=== PATIENT | female | born 1990 | race Caucasian/White ===

== ENCOUNTER 2017-08-08 07:48 | Inpatient (IN) | payer OTHER ==
[2017-08-08] MEDS: LABETALOL HCL 20MG INJ IV (08:43)
[2017-08-08] MEDS: SOD CHLORIDE 0.45% 1,000 ML IV ×2 (09:15→21:19)
[2017-08-08] MEDS ORDERED: NACL 0.9% 3 ML SYG IV (09:30)
[2017-08-08] MEDS ORDERED: MAGNESIUM HYDROXIDE 30ML CUP PO (09:30)
[2017-08-08] MEDS ORDERED: LORAZEPAM 2 MG INJ IV (09:30)
[2017-08-08] MEDS ORDERED: NITROGLYCERIN (SL) 0.4 MG TAB SL (09:30)
[2017-08-08] MEDS ORDERED: ONDANSETRON 4 MG INJ IV (09:30)
[2017-08-08] MEDS ORDERED: NA PHOSPHATE/BIPHOS 133 ML ENEMA PR (09:30)
[2017-08-08] MEDS ORDERED: ALBUTEROL/IPRATROPIUM (NEB) 3 ML AMP HHN (09:30)
[2017-08-08] MEDS: hydrALAzine 20 MG INJ IV ×2 (09:39→16:21)
[2017-08-08] MEDS: morphine 2 MG INJ IV ×3 (09:39→21:05)
[2017-08-08 11:06] LABS: FREE T4 (FREE THYROXINE) 0.77 ng/dl (0.79-2.35)
[2017-08-08] MEDS: PHENYTOIN 100 MG CAP PO ×2 (11:14→21:07)
[2017-08-08] MEDS: HYDROCODONE/APAP (5/325) TAB PO ×2 (11:27→21:13)
[2017-08-08] MEDS: DIPHENHYDRAMINE 25 MG CAP PO ×2 (12:15→21:12)
[2017-08-08] MEDS: SEVELAMER 800 MG TAB GTB ×2 (12:15→21:06)
[2017-08-08] MEDS: predniSONE 5 MG TAB PO (12:15)
[2017-08-08 12:59] LABS: ANION GAP 23 (8-16); BLOOD UREA NITROGEN 57 mg/dl (7-20); CALCIUM 12.4 mg/dl (8.4-10.2); CARBON DIOXIDE 29 mmol/L (21-31); CHLORIDE 94 mmol/L (97-110); CREATINE KINASE 42 IU/L (23-200); CREATININE 9.47 mg/dl (0.44-1.00); GLUCOSE 104 mg/dl (70-220); POTASSIUM 5.2 mmol/L (3.5-5.1); SODIUM 141 mmol/L (135-144)
[2017-08-08 13:10] LABS: CK INDEX 1.6; CK-MB 0.68 ng/ml (0.0-2.4); TROPONIN-I 0.059 ng/ml (0.00-0.12)
[2017-08-08 13:35] LABS: C-REACTIVE PROTEIN 0.7 mg/dl (0.0-0.9)
[2017-08-08] MEDS: NA POLYST SULFON 15 GM/60 ML BTL PO (13:37)
[2017-08-08] MEDS: LABETALOL 200 MG TAB PO ×2 (15:06→21:18)
[2017-08-08] MEDS ORDERED: PHENYTOIN 100 MG CAP PO (21:00)
[2017-08-08] MEDS: GABAPENTIN 300 MG CAP PO (21:06)
[2017-08-08] MEDS: METOPROLOL 50 MG TAB PO (21:14)
[2017-08-08] MEDS: HEPARIN 5,000 UNIT/0.5 ML VIAL SC (21:16)
[2017-08-08] MEDS: DOCUSATE SODIUM 100 MG CAP PO (22:09)
[2017-08-08] MEDS: FAMOTIDINE 20 MG TAB PO (22:44)
[2017-08-09] MEDS: PANTOPRAZOLE (EC) 40 MG TAB PO (01:25)
[2017-08-09] MEDS: hydrALAzine 20 MG INJ IV (02:36)
[2017-08-09] MEDS: morphine 2 MG INJ IV ×2 (02:37→07:31)
[2017-08-09] MEDS ORDERED: predniSONE 5 MG TAB PO (09:00)
[2017-08-09] MEDS: SEVELAMER 800 MG TAB GTB ×3 (09:00→20:47)
[2017-08-09 11:00] LABS: ADD MAN DIFF? NO
[2017-08-09 11:05] LABS: WHITE BLOOD COUNT 5.2 10^3/ul (4.8-10.8)
[2017-08-09 11:05] LABS: BASOPHILS % 0.6 % (0.0-2.0); EOSINOPHILS # 0.4 10^3/ul (0.0-0.5); EOSINOPHILS % 8.3 % (0.0-7.0); HEMATOCRIT 28.1 % (37.0-47.0); HEMOGLOBIN 9.4 g/dl (12.0-16.0); LYMPHOCYTES # 0.9 10^3/ul (0.8-2.9); LYMPHOCYTES % 17.9 % (15.0-51.0); MEAN CORPUSCULAR HEMOGLOBIN 34.8 pg (29.0-33.0); MEAN CORPUSCULAR HGB CONC 33.5 g/dl (32.0-37.0); MEAN CORPUSCULAR VOLUME 104.1 fl (82.0-101.0); MEAN PLATELET VOLUME 9.9 fl (7.4-10.4); MONOCYTE # 0.6 10^3/ul (0.3-0.9); MONOCYTES % 12.3 % (0.0-11.0); NEUTROPHIL # 3.2 10^3/ul (1.6-7.5); NEUTROPHILS % 60.5 % (39.0-77.0); PLATELET COUNT 200 10^3/UL (140-415); RED CELL DISTRIBUTION WIDTH 13.2 % (11.5-14.5)
[2017-08-09 11:19] LABS: ALBUMIN 3.5 g/dl (3.3-4.9)
[2017-08-09 11:53] LABS: HEPATITIS B SURFACE ANTIGEN NEGATIVE (NEGATIVE)
[2017-08-09] MEDS: SOD CHLORIDE 0.45% 1,000 ML IV (11:55)
[2017-08-09 12:10] LABS: HEPATITIS B SURFACE ANTIBODY POSITIVE (NEGATIVE)
[2017-08-09] MEDS: CINACALCET 30 MG TAB PO (12:52)
[2017-08-09] MEDS: PHENYTOIN 100 MG CAP PO ×2 (12:52→20:47)
[2017-08-09] MEDS: predniSONE 10 MG TAB PO (12:53)
[2017-08-09] MEDS: LABETALOL 200 MG TAB PO ×2 (12:54→20:48)
[2017-08-09] MEDS: METOPROLOL 50 MG TAB PO ×2 (12:54→20:48)
[2017-08-09] MEDS: HEPARIN 5,000 UNIT/0.5 ML VIAL SC ×2 (12:56→20:49)
[2017-08-09 13:25] LABS: ANION GAP 26 (8-16); BLOOD UREA NITROGEN 69 mg/dl (7-20); CALCIUM 12.3 mg/dl (8.4-10.2); CARBON DIOXIDE 24 mmol/L (21-31); CHLORIDE 95 mmol/L (97-110); CHOL/HDL RATIO 2.8 RATIO; CHOLESTEROL 133 mg/dl (100-200); CREATININE 10.87 mg/dl (0.44-1.00); GLUCOSE 74 mg/dl (70-220); HDL CHOLESTEROL 47 mg/dl (33-83); LDL CHOLESTEROL,CALCULATED 47 mg/dl; MAGNESIUM 3.3 mg/dl (1.7-2.5); PHOSPHORUS 7.5 mg/dl (2.5-4.9); SODIUM 139 mmol/L (135-144); TRIGLYCERIDES 194 mg/dl (0-149)
[2017-08-09 13:30] LABS: POTASSIUM 6.2 mmol/L (3.5-5.1)
[2017-08-09 13:32] LABS: HEMOGLOBIN A1C 4.6 % (0-5.9)
[2017-08-09] MEDS: traMADol 50 MG TAB PO (19:48)
[2017-08-10] MEDS: traMADol 50 MG TAB PO ×2 (01:36→17:14)
[2017-08-10] MEDS: PANTOPRAZOLE (EC) 40 MG TAB PO (05:52)
[2017-08-10 08:53] LABS: ADD MAN DIFF? NO
[2017-08-10] MEDS: SEVELAMER 800 MG TAB GTB ×3 (09:02→20:41)
[2017-08-10] MEDS: PHENYTOIN 100 MG CAP PO ×2 (09:02→20:40)
[2017-08-10] MEDS: GABAPENTIN 100 MG CAP PO (09:02)
[2017-08-10] MEDS: predniSONE 10 MG TAB PO (09:03)
[2017-08-10] MEDS: CINACALCET 30 MG TAB PO (09:03)
[2017-08-10] MEDS: METOPROLOL 50 MG TAB PO ×2 (09:03→20:41)
[2017-08-10] MEDS: LABETALOL 200 MG TAB PO ×2 (09:04→20:40)
[2017-08-10] MEDS: HEPARIN 5,000 UNIT/0.5 ML VIAL SC ×2 (09:06→20:46)
[2017-08-10 09:07] LABS: WHITE BLOOD COUNT 4.8 10^3/ul (4.8-10.8)
[2017-08-10 09:07] LABS: BASOPHILS % 0.4 % (0.0-2.0); EOSINOPHILS # 0.2 10^3/ul (0.0-0.5); EOSINOPHILS % 3.7 % (0.0-7.0); HEMATOCRIT 32.3 % (37.0-47.0); HEMOGLOBIN 10.6 g/dl (12.0-16.0); LYMPHOCYTES # 1.1 10^3/ul (0.8-2.9); LYMPHOCYTES % 22.4 % (15.0-51.0); MEAN CORPUSCULAR HEMOGLOBIN 34.3 pg (29.0-33.0); MEAN CORPUSCULAR HGB CONC 32.8 g/dl (32.0-37.0); MEAN CORPUSCULAR VOLUME 104.5 fl (82.0-101.0); MEAN PLATELET VOLUME 9.8 fl (7.4-10.4); MONOCYTE # 0.6 10^3/ul (0.3-0.9); MONOCYTES % 12.2 % (0.0-11.0); NEUTROPHIL # 2.9 10^3/ul (1.6-7.5); NEUTROPHILS % 61.1 % (39.0-77.0); PLATELET COUNT 209 10^3/UL (140-415); RED BLOOD COUNT 3.09 10^6/ul (4.20-5.40); RED CELL DISTRIBUTION WIDTH 13.3 % (11.5-14.5)
[2017-08-10 09:26] LABS: ALBUMIN 3.9 g/dl (3.3-4.9)
[2017-08-10] MEDS: ACETAMINOPHEN 325 MG TAB PO ×2 (09:37→20:40)
[2017-08-10 09:41] LABS: ANION GAP 21 (8-16); BLOOD UREA NITROGEN 42 mg/dl (7-20); CALCIUM 12.1 mg/dl (8.4-10.2); CARBON DIOXIDE 28 mmol/L (21-31); CHLORIDE 98 mmol/L (97-110); CREATININE 7.54 mg/dl (0.44-1.00); GLUCOSE 79 mg/dl (70-220); POTASSIUM 5.9 mmol/L (3.5-5.1); SODIUM 141 mmol/L (135-144)
[2017-08-10] MEDS: NA POLYST SULFON 15 GM/60 ML BTL PO (12:23)
[2017-08-10 17:23] LABS: PTH CALCIUM 12.5 mg/dL (8.6-10.2)
[2017-08-10] MEDS: morphine 2 MG INJ IV (21:33)
[2017-08-11] MEDS: LABETALOL HCL 20MG INJ IV (01:11)
[2017-08-11] MEDS: DIPHENHYDRAMINE 25 MG CAP PO (02:35)
[2017-08-11] MEDS: PANTOPRAZOLE (EC) 40 MG TAB PO (05:09)
[2017-08-11] MEDS: hydrALAzine 20 MG INJ IV ×2 (05:14→14:27)
[2017-08-11 08:21] LABS: PTH INTACT 547 pg/mL (14-64)
[2017-08-11] MEDS: HEPARIN 5,000 UNIT/0.5 ML VIAL SC ×2 (09:00→14:25)
[2017-08-11] MEDS: SEVELAMER 800 MG TAB GTB ×2 (09:06→13:17)
[2017-08-11 09:46] LABS: ADD MAN DIFF? NO
[2017-08-11 09:53] LABS: BASOPHILS % 0.4 % (0.0-2.0); EOSINOPHILS # 0.3 10^3/ul (0.0-0.5); EOSINOPHILS % 3.7 % (0.0-7.0); HEMOGLOBIN 10.1 g/dl (12.0-16.0); LYMPHOCYTES # 1.4 10^3/ul (0.8-2.9); LYMPHOCYTES % 17.3 % (15.0-51.0); MEAN CORPUSCULAR HEMOGLOBIN 34.1 pg (29.0-33.0); MEAN CORPUSCULAR HGB CONC 32.6 g/dl (32.0-37.0); MEAN CORPUSCULAR VOLUME 104.7 fl (82.0-101.0); MEAN PLATELET VOLUME 9.9 fl (7.4-10.4); MONOCYTE # 0.5 10^3/ul (0.3-0.9); MONOCYTES % 6.8 % (0.0-11.0); NEUTROPHIL # 5.6 10^3/ul (1.6-7.5); NEUTROPHILS % 71.5 % (39.0-77.0); PLATELET COUNT 207 10^3/UL (140-415); RED BLOOD COUNT 2.96 10^6/ul (4.20-5.40); RED CELL DISTRIBUTION WIDTH 13.2 % (11.5-14.5)
[2017-08-11 09:53] LABS: WHITE BLOOD COUNT 7.8 10^3/ul (4.8-10.8)
[2017-08-11 10:12] LABS: ANION GAP 24 (8-16); BLOOD UREA NITROGEN 63 mg/dl (7-20); CARBON DIOXIDE 24 mmol/L (21-31); CHLORIDE 99 mmol/L (97-110); CREATININE 10.54 mg/dl (0.44-1.00); GLUCOSE 117 mg/dl (70-220); POTASSIUM 4.9 mmol/L (3.5-5.1); SODIUM 142 mmol/L (135-144)
[2017-08-11] MEDS: HYDROmorphONE 0.5 MG/0.5 ML SYG IV (13:17)
[2017-08-11] MEDS: PHENYTOIN 100 MG CAP PO (14:25)
[2017-08-11] MEDS: METOPROLOL 50 MG TAB PO (14:26)
[2017-08-11] MEDS: LABETALOL 200 MG TAB PO (14:26)
[2017-08-11] MEDS: predniSONE 10 MG TAB PO (14:26)
[2017-08-11] MEDS: CINACALCET 30 MG TAB PO (14:26)
[2017-08-11 15:52] LABS: ANTI-DNA (DOUBLE STRANDED) <95 U/mL (< 301)
== END 2017-08-11 17:30 | disposition home or self-care (01) | DRG 643 ==
LOC: MS4 07:48
PROVIDERS: Internal Medicine
PROC: 5A1D70Z Performance of Urinary Filtration, Intermittent, Less than 6 Hours Per Day (ICD-10-PCS; principal; 2017-08-08)
PROC: 5A1D70Z Performance of Urinary Filtration, Intermittent, Less than 6 Hours Per Day (ICD-10-PCS; 2017-08-10)
DX: E21.0 Primary hyperparathyroidism (principal); N18.6 End stage renal disease; M32.9 Systemic lupus erythematosus, unspecified; I12.0 Hypertensive chronic kidney disease with stage 5 chronic kidney disease or end stage renal disease; N17.9 Acute kidney failure, unspecified; E87.70 Fluid overload, unspecified; Z99.2 Dependence on renal dialysis; M79.1 Myalgia; G40.909 Epilepsy, unspecified, not intractable, without status epilepticus; I16.0 Hypertensive urgency
CPT/HCPCS: 80048; 80061; 82040; 82306; 82550; 82553; 83036; 83735; 83970; 84100; 84439; 84443; 84484; 85025; 86140; 86226; 86706; 87340; 90935; 97110; 97116; 97162

== ENCOUNTER 2017-11-22 20:36 | Observation (INO) | payer OTHER ==
[2017-11-22] MEDS: ONDANSETRON 4 MG INJ IV (23:14)
[2017-11-22] MEDS: HYDROmorphONE 1 MG/ML SYG IV (23:14)
[2017-11-22] MEDS: SOD CHLORIDE 0.9% 500 ML IV ×2 (23:14→23:16)
[2017-11-22 23:25] LABS: ADD MAN DIFF? NO
[2017-11-22 23:26] LABS: WHITE BLOOD COUNT 4.8 10^3/ul (4.8-10.8)
[2017-11-22 23:26] LABS: BASOPHILS % 0.8 % (0.0-2.0); EOSINOPHILS # 0.7 10^3/ul (0.0-0.5); EOSINOPHILS % 14.1 % (0.0-7.0); HEMATOCRIT 28.5 % (37.0-47.0); HEMOGLOBIN 9.4 g/dl (12.0-16.0); LYMPHOCYTES # 0.8 10^3/ul (0.8-2.9); LYMPHOCYTES % 17.2 % (15.0-51.0); MEAN CORPUSCULAR HEMOGLOBIN 35.2 pg (29.0-33.0); MEAN CORPUSCULAR VOLUME 106.7 fl (82.0-101.0); MEAN PLATELET VOLUME 10.1 fl (7.4-10.4); MONOCYTE # 0.6 10^3/ul (0.3-0.9); MONOCYTES % 12.4 % (0.0-11.0); NEUTROPHIL # 2.7 10^3/ul (1.6-7.5); NEUTROPHILS % 55.1 % (39.0-77.0); PLATELET COUNT 250 10^3/UL (140-415); RED BLOOD COUNT 2.67 10^6/ul (4.20-5.40)
[2017-11-22 23:49] LABS: INR 0.89; PROTIME 12.1 Sec (11.9-14.9); PT RATIO 0.9
[2017-11-22 23:54] LABS: ALANINE AMINOTRANSFERASE 18 IU/L (13-69); ALBUMIN/GLOBULIN RATIO 1.21; ALKALINE PHOSPHATASE 550 IU/L (42-121); ANION GAP 20 (8-16); ASPARTATE AMINO TRANSFERASE 18 IU/L (15-46); BLOOD UREA NITROGEN 25 mg/dl (7-20); CALCIUM 12.2 mg/dl (8.4-10.2); CARBON DIOXIDE 28 mmol/L (21-31); CHLORIDE 94 mmol/L (97-110); CREATININE 5.48 mg/dl (0.44-1.00); GLUCOSE 98 mg/dl (70-220); LIPASE 99 U/L (23-300); POTASSIUM 3.7 mmol/L (3.5-5.1); SODIUM 138 mmol/L (135-144); TOTAL PROTEIN 7.3 g/dl (6.1-8.1)
[2017-11-23] MEDS: DIPHENHYDRAMINE 50 MG INJ IV (00:20)
[2017-11-23] MEDS: ACETAMINOPHEN 325 MG TAB PO (05:00)
[2017-11-23] MEDS ORDERED: ALBUTEROL/IPRATROPIUM (NEB) 3 ML AMP HHN (05:30)
[2017-11-23] MEDS ORDERED: DOCUSATE SODIUM 100 MG CAP PO (05:30)
[2017-11-23] MEDS ORDERED: NACL 0.9% 3 ML SYG IV (05:30)
[2017-11-23] MEDS ORDERED: FAMOTIDINE 20 MG TAB PO (05:30)
[2017-11-23] MEDS ORDERED: ONDANSETRON 4 MG INJ IV (05:30)
[2017-11-23] MEDS ORDERED: PHENYTOIN 200 MG PO (09:00)
[2017-11-23] MEDS: METOPROLOL 50 MG TAB PO ×2 (09:19→20:29)
[2017-11-23] MEDS: CINACALCET 30 MG TAB PO ×2 (09:19→20:27)
[2017-11-23] MEDS: LABETALOL 200 MG TAB PO ×2 (09:20→21:17)
[2017-11-23] MEDS: SEVELAMER CARBONATE 800 MG TABLET PO ×3 (09:23→17:30)
[2017-11-23] MEDS: HYDROCODONE/APAP (5/325) TAB PO (10:14)
[2017-11-23] MEDS: morphine 2 MG INJ IV (11:09)
[2017-11-23] MEDS: predniSONE 10 MG TAB PO (11:09)
[2017-11-23] MEDS: HEPARIN 5,000 UNIT/0.5 ML VIAL SC ×2 (11:24→20:33)
[2017-11-23] MEDS ORDERED: morphine 2 MG INJ IV (12:00)
[2017-11-23 12:59] LABS: COMPLEMENT C3 71 mg/dl (88-165); COMPLEMENT C4 30 mg/dl (14-44)
[2017-11-23] MEDS: PHENYTOIN 100 MG CAP PO ×2 (13:05→20:28)
[2017-11-23] MEDS ORDERED: morphine LIQ (10 MG/5 ML) CUP PO (17:00)
[2017-11-23] MEDS: CALCITONIN SALMON 400 UNITS INJ SC (17:30)
[2017-11-23] MEDS: HYDROmorphONE 1 MG/ML SYG IV (19:06)
[2017-11-23] MEDS ORDERED: CALCITONIN SALMON 3.7 ML NASAL SPRAY NASAL (20:00)
[2017-11-23] MEDS: NIFEdipine (XL) 90 MG TAB PO (20:29)
[2017-11-23] MEDS: DIPHENHYDRAMINE 25 MG CAP PO ×2 (21:16→23:30)
[2017-11-23] MEDS: LORAZEPAM 1 MG TAB PO (23:12)
[2017-11-23] MEDS: hydrALAzine 20 MG INJ IV (23:43)
[2017-11-24 06:08] LABS: ADD MAN DIFF? NO
[2017-11-24 06:12] LABS: BASOPHILS % 0.7 % (0.0-2.0); EOSINOPHILS # 0.4 10^3/ul (0.0-0.5); EOSINOPHILS % 8.1 % (0.0-7.0); HEMOGLOBIN 7.8 g/dl (12.0-16.0); LYMPHOCYTES % 21.4 % (15.0-51.0); MEAN CORPUSCULAR HEMOGLOBIN 34.7 pg (29.0-33.0); MEAN CORPUSCULAR HGB CONC 32.5 g/dl (32.0-37.0); MEAN CORPUSCULAR VOLUME 106.7 fl (82.0-101.0); MEAN PLATELET VOLUME 10.2 fl (7.4-10.4); MONOCYTE # 0.6 10^3/ul (0.3-0.9); MONOCYTES % 12.2 % (0.0-11.0); NEUTROPHIL # 2.6 10^3/ul (1.6-7.5); NEUTROPHILS % 57.4 % (39.0-77.0); PLATELET COUNT 229 10^3/UL (140-415); RED BLOOD COUNT 2.25 10^6/ul (4.20-5.40); RED CELL DISTRIBUTION WIDTH 13.6 % (11.5-14.5)
[2017-11-24 06:12] LABS: WHITE BLOOD COUNT 4.6 10^3/ul (4.8-10.8)
[2017-11-24 06:39] LABS: ALANINE AMINOTRANSFERASE 18 IU/L (13-69); ALBUMIN 3.2 g/dl (3.3-4.9); ALBUMIN/GLOBULIN RATIO 1.14; ALKALINE PHOSPHATASE 401 IU/L (42-121); ANION GAP 19 (8-16); ASPARTATE AMINO TRANSFERASE 13 IU/L (15-46); BLOOD UREA NITROGEN 43 mg/dl (7-20); CALCIUM 11.5 mg/dl (8.4-10.2); CARBON DIOXIDE 30 mmol/L (21-31); CHLORIDE 92 mmol/L (97-110); GLUCOSE 88 mg/dl (70-220); MAGNESIUM 2.5 mg/dl (1.7-2.5); PHOSPHORUS 8.9 mg/dl (2.5-4.9); POTASSIUM 4.1 mmol/L (3.5-5.1); SODIUM 137 mmol/L (135-144)
[2017-11-24 08:07] LABS: ERYTHROCYTE SEDIMENTATION RATE 60 mm/Hr (0-20)
[2017-11-24] MEDS: CINACALCET 30 MG TAB PO ×2 (08:39→20:53)
[2017-11-24] MEDS: SEVELAMER CARBONATE 800 MG TABLET PO ×3 (08:40→18:06)
[2017-11-24] MEDS: traMADol 50 MG TAB PO (08:41)
[2017-11-24] MEDS: PHENYTOIN 100 MG CAP PO ×2 (08:41→20:55)
[2017-11-24] MEDS: METOPROLOL 50 MG TAB PO ×2 (08:42→20:55)
[2017-11-24] MEDS: predniSONE 10 MG TAB PO (08:42)
[2017-11-24] MEDS: LABETALOL 200 MG TAB PO ×3 (08:43→20:54)
[2017-11-24] MEDS: HEPARIN 5,000 UNIT/0.5 ML VIAL SC ×2 (08:46→21:00)
[2017-11-24] MEDS: CALCITONIN SALMON 3.7 ML NASAL SPRAY NASAL (09:00)
[2017-11-24] MEDS ORDERED: CALCITONIN SALMON 400 UNITS INJ SC (09:00)
[2017-11-24 11:32] LABS: HEPATITIS B SURFACE ANTIGEN NEGATIVE (NEGATIVE)
[2017-11-24] MEDS ORDERED: LIDOCAINE 1% (MPF) 30 ML INJ INJ (12:00)
[2017-11-24] MEDS ORDERED: LIDOCAINE 1% (MDV) 10 ML INJ INJ ×2 (12:00→14:00)
[2017-11-24] MEDS: LIDOCAINE 5% 35 GM OINT TOP (12:05)
[2017-11-24] MEDS ORDERED: LIDOCAINE 1% (MDV) 50 ML INJ INJ (14:30)
[2017-11-24 15:23] LABS: HEPATITIS B SURFACE ANTIBODY POSITIVE (NEGATIVE)
[2017-11-24] MEDS: morphine 2 MG INJ IV ×2 (15:25→21:03)
[2017-11-24] MEDS: DIPHENHYDRAMINE 25 MG CAP PO (18:06)
[2017-11-24] MEDS: NIFEdipine (XL) 90 MG TAB PO (20:55)
[2017-11-25] MEDS: morphine 2 MG INJ IV ×4 (01:16→14:23)
[2017-11-25] MEDS: hydrALAzine 20 MG INJ IV (01:23)
[2017-11-25] MEDS: DIPHENHYDRAMINE 25 MG CAP PO (05:02)
[2017-11-25 06:15] LABS: ANION GAP 15 (8-16); BLOOD UREA NITROGEN 21 mg/dl (7-20); CALCIUM 10.9 mg/dl (8.4-10.2); CARBON DIOXIDE 27 mmol/L (21-31); CHLORIDE 102 mmol/L (97-110); CREATININE 5.08 mg/dl (0.44-1.00); GLUCOSE 94 mg/dl (70-220); POTASSIUM 3.7 mmol/L (3.5-5.1); SODIUM 140 mmol/L (135-144)
[2017-11-25] MEDS: PHENYTOIN 100 MG CAP PO (08:54)
[2017-11-25] MEDS: SEVELAMER CARBONATE 800 MG TABLET PO ×3 (08:54→18:22)
[2017-11-25] MEDS: predniSONE 10 MG TAB PO (08:55)
[2017-11-25] MEDS: CINACALCET 30 MG TAB PO (08:55)
[2017-11-25] MEDS: METOPROLOL 50 MG TAB PO (08:56)
[2017-11-25] MEDS: LABETALOL 200 MG TAB PO ×2 (08:56→13:38)
[2017-11-25] MEDS: CALCITONIN SALMON 3.7 ML NASAL SPRAY NASAL ×3 (08:58→14:11)
[2017-11-25] MEDS: HEPARIN 5,000 UNIT/0.5 ML VIAL SC (08:58)
[2017-11-25] MEDS: HYDROmorphONE 2 MG TAB PO (18:22)
[2017-11-26 04:21] LABS: PROTEIN, TOTAL 5.6 g/dL (6.1-8.1)
[2017-11-26 22:23] LABS: ALBUMIN 3.1 g/dL (3.8-4.8); ALPHA-1-GLOBULINS 0.3 g/dL (0.2-0.3); ALPHA-2-GLOBULINS 0.6 g/dL (0.5-0.9); BETA 2 GLOBULINS 0.2 g/dL (0.2-0.5); BETA GLOBULINS 0.2 g/dL (0.4-0.6); GAMMA GLOBULINS 1.1 g/dL (0.8-1.7)
== END 2017-11-25 20:25 | disposition home or self-care (01) ==
LOC: E/R 20:36 → MS2 11-23 02:21
DX: M32.9 Systemic lupus erythematosus, unspecified (principal); I12.0 Hypertensive chronic kidney disease with stage 5 chronic kidney disease or end stage renal disease; N18.6 End stage renal disease; Z99.2 Dependence on renal dialysis; E83.52 Hypercalcemia; E21.2 Other hyperparathyroidism
CPT/HCPCS: 36415; 78070; 80048; 80053; 83690; 83735; 84100; 84155; 84165; 84443; 85025; 85610; 85651; 85730; 86160; 86226; 86706; 87340; 90935; 96374; 96375; 97161; 99285-25

== ENCOUNTER 2017-12-14 21:53 | Inpatient (IN) | payer OTHER ==
[2017-12-14] MEDS: ONDANSETRON 4 MG INJ IV (22:32)
[2017-12-14] MEDS: HYDROmorphONE 1 MG/ML SYG IV (22:32)
[2017-12-14 22:37] LABS: ADD MAN DIFF? NO
[2017-12-14 22:42] LABS: WHITE BLOOD COUNT 6.8 10^3/ul (4.8-10.8)
[2017-12-14 22:42] LABS: BASOPHILS % 0.6 % (0.0-2.0); EOSINOPHILS # 0.7 10^3/ul (0.0-0.5); EOSINOPHILS % 10.7 % (0.0-7.0); HEMATOCRIT 31.5 % (37.0-47.0); HEMOGLOBIN 10.4 g/dl (12.0-16.0); LYMPHOCYTES # 1.4 10^3/ul (0.8-2.9); LYMPHOCYTES % 20.1 % (15.0-51.0); MEAN CORPUSCULAR HEMOGLOBIN 34.6 pg (29.0-33.0); MEAN CORPUSCULAR VOLUME 104.7 fl (82.0-101.0); MEAN PLATELET VOLUME 10.5 fl (7.4-10.4); MONOCYTE # 0.7 10^3/ul (0.3-0.9); MONOCYTES % 10.9 % (0.0-11.0); NEUTROPHIL # 3.9 10^3/ul (1.6-7.5); NEUTROPHILS % 57.4 % (39.0-77.0); PLATELET COUNT 312 10^3/UL (140-415); RED BLOOD COUNT 3.01 10^6/ul (4.20-5.40); RED CELL DISTRIBUTION WIDTH 14.2 % (11.5-14.5)
[2017-12-14 22:59] LABS: ALANINE AMINOTRANSFERASE 18 IU/L (13-69); ALBUMIN 3.9 g/dl (3.3-4.9); ALBUMIN/GLOBULIN RATIO 1.08; ALKALINE PHOSPHATASE 649 IU/L (42-121); ANION GAP 17 (8-16); ASPARTATE AMINO TRANSFERASE 30 IU/L (15-46); BLOOD UREA NITROGEN 38 mg/dl (7-20); CARBON DIOXIDE 25 mmol/L (21-31); CHLORIDE 96 mmol/L (97-110); CREATININE 7.64 mg/dl (0.44-1.00); GLUCOSE 90 mg/dl (70-220); LIPASE 56 U/L (23-300); POTASSIUM 4.2 mmol/L (3.5-5.1); SODIUM 134 mmol/L (135-144); TOTAL PROTEIN 7.5 g/dl (6.1-8.1)
[2017-12-14 23:11] LABS: TROPONIN-I 0.116 ng/ml (0.000-0.120)
[2017-12-15] MEDS: HYDROmorphONE 1 MG/ML SYG IV ×3 (00:12→06:40)
[2017-12-15] MEDS ORDERED: DOCUSATE SODIUM 100 MG CAP PO ×2 (01:30→02:00)
[2017-12-15] MEDS: SOD CHLORIDE 0.9% 1,000 ML IV (01:34)
[2017-12-15] MEDS: DIPHENHYDRAMINE 50 MG CAP PO (01:41)
[2017-12-15] MEDS ORDERED: BISACODYL (EC) 5 MG TAB PO (02:00)
[2017-12-15] MEDS ORDERED: ACETAMINOPHEN 325 MG TAB PO (02:00)
[2017-12-15] MEDS ORDERED: NACL 0.9% 3 ML SYG IV (02:00)
[2017-12-15] MEDS: CINACALCET 30 MG TAB PO ×2 (02:24→12:30)
[2017-12-15] MEDS: METOPROLOL 50 MG TAB PO (02:24)
[2017-12-15] MEDS: CALCITONIN SALMON 400 UNITS INJ SC ×2 (02:25→12:34)
[2017-12-15] MEDS: LORAZEPAM 1 MG TAB PO (02:51)
[2017-12-15] MEDS: HYDROmorphONE 0.5 MG/0.5 ML SYG IV ×4 (02:52→21:56)
[2017-12-15] MEDS: ONDANSETRON 4 MG INJ IV ×2 (04:02→18:45)
[2017-12-15] MEDS: hydrALAzine 20 MG INJ IV (06:41)
[2017-12-15] MEDS ORDERED: HYDROmorphONE 1 MG/ML SYG IV (08:00)
[2017-12-15] MEDS ORDERED: METOPROLOL 50 MG TAB PO (09:00)
[2017-12-15] MEDS: LABETALOL 200 MG TAB PO (09:04)
[2017-12-15] MEDS: SEVELAMER CARBONATE 2.4 GM PKT PO ×2 (09:04→13:07)
[2017-12-15] MEDS: predniSONE 5 MG TAB PO (09:04)
[2017-12-15 09:32] LABS: ADD MAN DIFF? NO
[2017-12-15 09:39] LABS: BASOPHIL # 0.1 10^3/ul (0.0-0.1); BASOPHILS % 0.9 % (0.0-2.0); EOSINOPHILS # 0.9 10^3/ul (0.0-0.5); EOSINOPHILS % 13.3 % (0.0-7.0); HEMATOCRIT 28.8 % (37.0-47.0); HEMOGLOBIN 9.1 g/dl (12.0-16.0); LYMPHOCYTES # 1.1 10^3/ul (0.8-2.9); LYMPHOCYTES % 15.6 % (15.0-51.0); MEAN CORPUSCULAR HEMOGLOBIN 33.3 pg (29.0-33.0); MEAN CORPUSCULAR HGB CONC 31.6 g/dl (32.0-37.0); MEAN CORPUSCULAR VOLUME 105.5 fl (82.0-101.0); MONOCYTE # 0.8 10^3/ul (0.3-0.9); MONOCYTES % 10.7 % (0.0-11.0); NEUTROPHIL # 4.1 10^3/ul (1.6-7.5); NEUTROPHILS % 58.9 % (39.0-77.0); PLATELET COUNT 266 10^3/UL (140-415); RED BLOOD COUNT 2.73 10^6/ul (4.20-5.40); RED CELL DISTRIBUTION WIDTH 14.1 % (11.5-14.5)
[2017-12-15 09:54] LABS: LACTIC ACID 1.3 mmol/L (0.5-2.0)
[2017-12-15 10:16] LABS: GAMMA GLUTAMYL TRANSPEPTIDASE 143 IU/L (0-50)
[2017-12-15 10:25] LABS: C-REACTIVE PROTEIN 1.9 mg/dl (0.0-0.9)
[2017-12-15 10:32] LABS: ALANINE AMINOTRANSFERASE 20 IU/L (13-69); ALBUMIN 3.4 g/dl (3.3-4.9); ALBUMIN/GLOBULIN RATIO 1.09; ALKALINE PHOSPHATASE 566 IU/L (42-121); ANION GAP 18 (8-16); ASPARTATE AMINO TRANSFERASE 31 IU/L (15-46); BLOOD UREA NITROGEN 43 mg/dl (7-20); CALCIUM 8.5 mg/dl (8.4-10.2); CARBON DIOXIDE 21 mmol/L (21-31); CHLORIDE 98 mmol/L (97-110); CREATININE 8.35 mg/dl (0.44-1.00); GLUCOSE 82 mg/dl (70-220); MAGNESIUM 2.6 mg/dl (1.7-2.5); POTASSIUM 4.6 mmol/L (3.5-5.1); SODIUM 132 mmol/L (135-144); TOTAL PROTEIN 6.5 g/dl (6.1-8.1)
[2017-12-15 10:36] LABS: LACTIC ACID 1.2 mmol/L (0.5-2.0)
[2017-12-15 10:47] LABS: ERYTHROCYTE SEDIMENTATION RATE 61 mm/Hr (0-20)
[2017-12-15] MEDS: PHENYTOIN 100 MG CAP PO (12:29)
[2017-12-15] MEDS: SEVELAMER CARBONATE 800 MG TABLET PO (18:45)
[2017-12-15] MEDS: LIDOCAINE 1% (MDV) 10 ML INJ INJ (22:00)
[2017-12-16] MEDS: DIPHENHYDRAMINE 25 MG CAP PO (00:34)
[2017-12-16] MEDS: NIFEdipine (XL) 90 MG TAB PO ×3 (02:10→20:53)
[2017-12-16] MEDS: LABETALOL 200 MG TAB PO ×3 (02:10→20:52)
[2017-12-16] MEDS: PHENYTOIN 100 MG CAP PO ×3 (02:11→20:53)
[2017-12-16] MEDS: HYDROmorphONE 0.5 MG/0.5 ML SYG IV ×5 (02:22→22:46)
[2017-12-16] MEDS: LABETALOL HCL 20MG INJ IV (06:26)
[2017-12-16 07:55] LABS: ANION GAP 15 (8-16); BLOOD UREA NITROGEN 18 mg/dl (7-20); CALCIUM 11.9 mg/dl (8.4-10.2); CARBON DIOXIDE 28 mmol/L (21-31); CHLORIDE 98 mmol/L (97-110); CREATININE 4.35 mg/dl (0.44-1.00); GLUCOSE 82 mg/dl (70-220); MAGNESIUM 2.5 mg/dl (1.7-2.5); PHOSPHORUS 7.6 mg/dl (2.5-4.9); POTASSIUM 4.2 mmol/L (3.5-5.1); SODIUM 137 mmol/L (135-144)
[2017-12-16] MEDS: CINACALCET 30 MG TAB PO (08:15)
[2017-12-16] MEDS: SEVELAMER CARBONATE 800 MG TABLET PO ×3 (08:15→18:03)
[2017-12-16] MEDS: predniSONE 5 MG TAB PO (08:24)
[2017-12-16] MEDS: ONDANSETRON 4 MG INJ IV (10:18)
[2017-12-17] MEDS: DIPHENHYDRAMINE 25 MG CAP PO ×2 (00:36→22:13)
[2017-12-17] MEDS: HYDROmorphONE 0.5 MG/0.5 ML SYG IV ×2 (04:47→18:11)
[2017-12-17 07:28] LABS: ADD MAN DIFF? NO
[2017-12-17 07:36] LABS: BASOPHILS % 0.5 % (0.0-2.0); EOSINOPHILS # 0.5 10^3/ul (0.0-0.5); EOSINOPHILS % 9.5 % (0.0-7.0); HEMATOCRIT 25.9 % (37.0-47.0); LYMPHOCYTES # 0.8 10^3/ul (0.8-2.9); LYMPHOCYTES % 14.8 % (15.0-51.0); MEAN CORPUSCULAR HEMOGLOBIN 33.1 pg (29.0-33.0); MEAN CORPUSCULAR HGB CONC 30.9 g/dl (32.0-37.0); MEAN PLATELET VOLUME 10.1 fl (7.4-10.4); MONOCYTE # 0.6 10^3/ul (0.3-0.9); NEUTROPHIL # 3.7 10^3/ul (1.6-7.5); PLATELET COUNT 254 10^3/UL (140-415); RED BLOOD COUNT 2.42 10^6/ul (4.20-5.40); RED CELL DISTRIBUTION WIDTH 14.3 % (11.5-14.5)
[2017-12-17 07:36] LABS: WHITE BLOOD COUNT 5.7 10^3/ul (4.8-10.8)
[2017-12-17 07:55] LABS: ANION GAP 14 (8-16); BLOOD UREA NITROGEN 30 mg/dl (7-20); CALCIUM 11.3 mg/dl (8.4-10.2); CARBON DIOXIDE 30 mmol/L (21-31); CHLORIDE 98 mmol/L (97-110); CREATININE 6.95 mg/dl (0.44-1.00); GLUCOSE 91 mg/dl (70-220); MAGNESIUM 2.6 mg/dl (1.7-2.5); PHOSPHORUS 7.5 mg/dl (2.5-4.9); SODIUM 138 mmol/L (135-144)
[2017-12-17] MEDS: LABETALOL 200 MG TAB PO ×2 (09:00→20:42)
[2017-12-17] MEDS: NIFEdipine (XL) 90 MG TAB PO ×2 (09:00→20:42)
[2017-12-17] MEDS: predniSONE 5 MG TAB PO (09:01)
[2017-12-17] MEDS: PHENYTOIN 100 MG CAP PO ×2 (09:01→20:41)
[2017-12-17] MEDS: SEVELAMER CARBONATE 800 MG TABLET PO ×3 (09:02→17:48)
[2017-12-17] MEDS: CINACALCET 30 MG TAB PO (09:02)
[2017-12-17] MEDS: HYDROmorphONE 0.5 MG/0.5 ML SYG IM (09:13)
[2017-12-17 09:59] LABS: ADD UMIC YES; UR AMORPHOUS CRYSTAL FEW /HPF (NONE SEEN); UR ASCORBIC ACID NEGATIVE (NEGATIVE); UR BACTERIA MODERATE /HPF (NONE SEEN); UR BILIRUBIN (Dip) NEGATIVE (NEGATIVE); UR BLOOD (Dip) 2+ mg/dL (NEGATIVE); UR CLARITY TURBID (CLEAR); UR COLOR AMBER (YELLOW); UR GLUCOSE (Dip) 2+ mg/dL (NEGATIVE); UR HYALINE CAST FEW /HPF (NONE SEEN); UR KETONES (Dip) TRACE mg/dL (NEGATIVE); UR LEUKOCYTE ESTERASE (Dip) NEGATIVE Leu/ul (NEGATIVE); UR NITRITE (Dip) NEGATIVE (NEGATIVE); UR NONSQUAMOUS EPITHELIAL CELL 2 /HPF (NONE SEEN); UR RBC 48 /HPF (0-5); UR SPECIFIC GRAVITY (Dip) 1.012 (1.003-1.030); UR SQUAMOUS EPITHELIAL CELL MANY /HPF (FEW); UR TOTAL PROTEIN (Dip) 2+ mg/dl (NEGATIVE); UR UROBILINOGEN (Dip) NEGATIVE (NEGATIVE); UR WBC 86 /HPF (0-5)
[2017-12-17] MEDS: HYDROCODONE/APAP (5/325) TAB PO ×2 (11:43→16:55)
[2017-12-17] MEDS: LIDOCAINE 1% (MDV) 10 ML INJ INJ (13:12)
[2017-12-17] MEDS: LIDOCAINE 1% (MPF) 5 ML VIAL INJ (14:12)
[2017-12-17] MEDS: HYDROCODONE/APAP (10/325) TAB GTB (20:48)
[2017-12-18] MEDS: HYDROCODONE/APAP (10/325) TAB GTB ×5 (03:53→18:46)
[2017-12-18] MEDS: CINACALCET 30 MG TAB PO ×2 (08:08→20:55)
[2017-12-18] MEDS: SEVELAMER CARBONATE 800 MG TABLET PO ×2 (08:09→17:13)
[2017-12-18] MEDS: PHENYTOIN 100 MG CAP PO ×2 (08:09→20:56)
[2017-12-18] MEDS: LABETALOL 200 MG TAB PO ×2 (08:10→20:56)
[2017-12-18] MEDS: NIFEdipine (XL) 90 MG TAB PO ×2 (08:10→20:55)
[2017-12-18] MEDS: predniSONE 5 MG TAB PO (08:10)
[2017-12-18] MEDS: CALCITONIN SALMON 400 UNITS INJ SC (13:40)
[2017-12-18] MEDS: DIPHENHYDRAMINE 25 MG CAP PO (14:27)
[2017-12-18] MEDS: LORAZEPAM 1 MG TAB PO (21:46)
[2017-12-19] MEDS: HYDROCODONE/APAP (10/325) TAB GTB ×5 (00:57→20:40)
[2017-12-19 05:47] LABS: ALBUMIN 3.4 g/dl (3.3-4.9); ANION GAP 14 (8-16); BLOOD UREA NITROGEN 25 mg/dl (7-20); CALCIUM 10.7 mg/dl (8.4-10.2); CARBON DIOXIDE 29 mmol/L (21-31); CHLORIDE 95 mmol/L (97-110); CREATININE 6.74 mg/dl (0.44-1.00); GLUCOSE 84 mg/dl (70-220); POTASSIUM 4.4 mmol/L (3.5-5.1); SODIUM 134 mmol/L (135-144)
[2017-12-19] MEDS: SEVELAMER CARBONATE 800 MG TABLET PO ×5 (09:23→18:08)
[2017-12-19] MEDS: CINACALCET 30 MG TAB PO ×2 (09:23→23:21)
[2017-12-19] MEDS: PHENYTOIN 100 MG CAP PO ×2 (09:23→20:41)
[2017-12-19] MEDS: predniSONE 5 MG TAB PO (09:24)
[2017-12-19] MEDS: LIDOCAINE 1% (MDV) 20 ML INJ INJ (10:01)
[2017-12-19] MEDS: LABETALOL 200 MG TAB PO ×2 (12:36→23:22)
[2017-12-19] MEDS: CALCITONIN SALMON 400 UNITS INJ SC (13:42)
[2017-12-19] MEDS: NIFEdipine (XL) 90 MG TAB PO ×2 (15:35→20:40)
[2017-12-19] MEDS: hydrALAzine 20 MG INJ IV (20:41)
[2017-12-20] MEDS: DIPHENHYDRAMINE 25 MG CAP PO ×2 (01:32→16:01)
[2017-12-20] MEDS: KETOROLAC 30 MG INJ IV ×2 (01:40→22:09)
[2017-12-20 06:13] LABS: ALBUMIN 3.8 g/dl (3.3-4.9); ANION GAP 17 (8-16); BLOOD UREA NITROGEN 19 mg/dl (7-20); CALCIUM 12.3 mg/dl (8.4-10.2); CARBON DIOXIDE 28 mmol/L (21-31); CHLORIDE 96 mmol/L (97-110); CREATININE 4.77 mg/dl (0.44-1.00); GLUCOSE 85 mg/dl (70-220); PHOSPHORUS 7.1 mg/dl (2.5-4.9); POTASSIUM 4.6 mmol/L (3.5-5.1); SODIUM 136 mmol/L (135-144)
[2017-12-20] MEDS: HYDROCODONE/APAP (5/325) TAB PO ×3 (07:05→18:34)
[2017-12-20] MEDS: SEVELAMER CARBONATE 800 MG TABLET PO ×3 (09:04→18:31)
[2017-12-20] MEDS: PHENYTOIN 100 MG CAP PO ×2 (09:05→21:00)
[2017-12-20] MEDS: predniSONE 5 MG TAB PO (09:05)
[2017-12-20] MEDS: NIFEdipine (XL) 90 MG TAB PO ×2 (09:06→21:00)
[2017-12-20] MEDS: LABETALOL 200 MG TAB PO ×2 (09:06→20:59)
[2017-12-20] MEDS: CINACALCET 30 MG TAB PO ×2 (09:12→21:00)
[2017-12-20] MEDS: CALCITONIN SALMON 400 UNITS INJ SC (09:12)
[2017-12-20] MEDS: ONDANSETRON 4 MG INJ IV (13:36)
[2017-12-21] MEDS: LORAZEPAM 1 MG TAB PO (01:00)
[2017-12-21 06:11] LABS: ALBUMIN 3.6 g/dl (3.3-4.9); ANION GAP 18 (8-16); BLOOD UREA NITROGEN 34 mg/dl (7-20); CALCIUM 11.3 mg/dl (8.4-10.2); CARBON DIOXIDE 27 mmol/L (21-31); CHLORIDE 94 mmol/L (97-110); CREATININE 7.07 mg/dl (0.44-1.00); GLUCOSE 83 mg/dl (70-220); PHOSPHORUS 7.3 mg/dl (2.5-4.9); SODIUM 134 mmol/L (135-144)
[2017-12-21] MEDS: LIDOCAINE 1% (MDV) 20 ML INJ INJ (08:40)
[2017-12-21] MEDS: predniSONE 5 MG TAB PO (08:55)
[2017-12-21] MEDS: PHENYTOIN 100 MG CAP PO ×2 (08:55→20:38)
[2017-12-21] MEDS: SEVELAMER CARBONATE 800 MG TABLET PO ×4 (08:55→18:31)
[2017-12-21] MEDS: CALCITONIN SALMON 400 UNITS INJ SC (08:56)
[2017-12-21] MEDS: LABETALOL 200 MG TAB PO ×2 (09:00→20:38)
[2017-12-21] MEDS: NIFEdipine (XL) 90 MG TAB PO ×2 (09:00→20:46)
[2017-12-21] MEDS: CINACALCET 30 MG TAB PO ×3 (09:51→20:39)
[2017-12-21] MEDS: HYDROmorphONE 4 MG TAB PO ×2 (13:41→21:36)
[2017-12-21] MEDS: ONDANSETRON 4 MG INJ IV (16:12)
[2017-12-21] MEDS: EPOETIN 10000 UNITS/1 ML INJ (ESRD) SC (18:08)
[2017-12-21] MEDS: hydrALAzine 20 MG INJ IV (18:10)
[2017-12-21] MEDS: HYDROCODONE/APAP (5/325) TAB PO (18:31)
[2017-12-21] MEDS: DIPHENHYDRAMINE 25 MG CAP PO (22:47)
[2017-12-22] MEDS: hydrALAzine 20 MG INJ IV (02:22)
[2017-12-22] MEDS: HYDROmorphONE 4 MG TAB PO ×2 (04:18→18:21)
[2017-12-22 05:46] LABS: ADD MAN DIFF? NO
[2017-12-22 06:00] LABS: WHITE BLOOD COUNT 5.8 10^3/ul (4.8-10.8)
[2017-12-22 06:00] LABS: BASOPHIL # 0.1 10^3/ul (0.0-0.1); BASOPHILS % 1.2 % (0.0-2.0); EOSINOPHILS # 0.7 10^3/ul (0.0-0.5); HEMATOCRIT 30.7 % (37.0-47.0); HEMOGLOBIN 9.5 g/dl (12.0-16.0); LYMPHOCYTES # 1.3 10^3/ul (0.8-2.9); LYMPHOCYTES % 23.1 % (15.0-51.0); MEAN CORPUSCULAR HEMOGLOBIN 32.9 pg (29.0-33.0); MEAN CORPUSCULAR HGB CONC 30.9 g/dl (32.0-37.0); MEAN CORPUSCULAR VOLUME 106.2 fl (82.0-101.0); MEAN PLATELET VOLUME 9.9 fl (7.4-10.4); MONOCYTE # 0.7 10^3/ul (0.3-0.9); MONOCYTES % 11.8 % (0.0-11.0); NEUTROPHILS % 51.6 % (39.0-77.0); PLATELET COUNT 296 10^3/UL (140-415); RED BLOOD COUNT 2.89 10^6/ul (4.20-5.40); RED CELL DISTRIBUTION WIDTH 13.8 % (11.5-14.5)
[2017-12-22 06:40] LABS: ANION GAP 16 (8-16); BLOOD UREA NITROGEN 22 mg/dl (7-20); CALCIUM 12.5 mg/dl (8.4-10.2); CARBON DIOXIDE 29 mmol/L (21-31); CHLORIDE 93 mmol/L (97-110); CREATININE 4.99 mg/dl (0.44-1.00); GLUCOSE 83 mg/dl (70-220); MAGNESIUM 2.6 mg/dl (1.7-2.5); PHOSPHORUS 7.2 mg/dl (2.5-4.9); SODIUM 133 mmol/L (135-144)
[2017-12-22] MEDS: HYDROCODONE/APAP (5/325) TAB PO (08:38)
[2017-12-22] MEDS: CINACALCET 30 MG TAB PO ×3 (08:38→21:16)
[2017-12-22] MEDS: NIFEdipine (XL) 90 MG TAB PO ×2 (08:40→21:17)
[2017-12-22] MEDS: predniSONE 5 MG TAB PO (08:41)
[2017-12-22] MEDS: LABETALOL 200 MG TAB PO ×2 (08:41→21:17)
[2017-12-22] MEDS: PHENYTOIN 100 MG CAP PO ×2 (08:41→21:17)
[2017-12-22] MEDS: CALCITONIN SALMON 400 UNITS INJ SC (08:52)
[2017-12-22] MEDS: ONDANSETRON 4 MG INJ IV ×2 (13:37→17:53)
[2017-12-22] MEDS: SEVELAMER CARBONATE 800 MG TABLET PO ×2 (13:38→18:21)
[2017-12-22] MEDS: HYDROmorphONE 1 MG/ML SYG IV (22:58)
[2017-12-23] MEDS: DIPHENHYDRAMINE 25 MG CAP PO ×2 (00:23→22:17)
[2017-12-23] MEDS: HYDROmorphONE 4 MG TAB PO ×2 (08:31→16:04)
[2017-12-23] MEDS: LABETALOL 200 MG TAB PO ×2 (08:31→22:11)
[2017-12-23] MEDS: NIFEdipine (XL) 90 MG TAB PO ×2 (08:31→22:11)
[2017-12-23] MEDS: CINACALCET 30 MG TAB PO ×3 (08:32→22:12)
[2017-12-23] MEDS: PHENYTOIN 100 MG CAP PO ×2 (08:32→22:11)
[2017-12-23] MEDS: SEVELAMER CARBONATE 800 MG TABLET PO ×3 (08:32→16:08)
[2017-12-23] MEDS: predniSONE 5 MG TAB PO (08:34)
[2017-12-23] MEDS: LIDOCAINE 1% (MDV) 10 ML INJ (09:26)
[2017-12-23] MEDS: CALCITONIN SALMON 400 UNITS INJ SC (10:53)
[2017-12-23] MEDS: HYDROmorphONE 1 MG/ML SYG IV ×2 (12:09→21:58)
[2017-12-23] MEDS: hydrALAzine 20 MG INJ IV (12:09)
[2017-12-23 14:47] LABS: ADD MAN DIFF? NO
[2017-12-23 15:00] LABS: WHITE BLOOD COUNT 5.3 10^3/ul (4.8-10.8)
[2017-12-23 15:00] LABS: BASOPHILS % 0.8 % (0.0-2.0); EOSINOPHILS # 0.7 10^3/ul (0.0-0.5); EOSINOPHILS % 13.4 % (0.0-7.0); HEMATOCRIT 31.2 % (37.0-47.0); HEMOGLOBIN 9.9 g/dl (12.0-16.0); LYMPHOCYTES # 1.1 10^3/ul (0.8-2.9); LYMPHOCYTES % 19.9 % (15.0-51.0); MEAN CORPUSCULAR HEMOGLOBIN 33.3 pg (29.0-33.0); MEAN CORPUSCULAR HGB CONC 31.7 g/dl (32.0-37.0); MEAN CORPUSCULAR VOLUME 105.1 fl (82.0-101.0); MEAN PLATELET VOLUME 9.9 fl (7.4-10.4); MONOCYTE # 0.6 10^3/ul (0.3-0.9); MONOCYTES % 11.2 % (0.0-11.0); NEUTROPHIL # 2.9 10^3/ul (1.6-7.5); NEUTROPHILS % 54.5 % (39.0-77.0); PLATELET COUNT 278 10^3/UL (140-415); RED BLOOD COUNT 2.97 10^6/ul (4.20-5.40); RED CELL DISTRIBUTION WIDTH 13.5 % (11.5-14.5)
[2017-12-23 15:10] LABS: ANION GAP 17 (8-16); BLOOD UREA NITROGEN 43 mg/dl (7-20); CALCIUM 11.6 mg/dl (8.4-10.2); CARBON DIOXIDE 27 mmol/L (21-31); CHLORIDE 91 mmol/L (97-110); CREATININE 8.61 mg/dl (0.44-1.00); GLUCOSE 108 mg/dl (70-220); POTASSIUM 5.1 mmol/L (3.5-5.1); SODIUM 130 mmol/L (135-144)
[2017-12-23] MEDS: EPOETIN 10000 UNITS/1 ML INJ (ESRD) SC (16:07)
[2017-12-23] MEDS: LIDOCAINE 1% (MDV) 20 ML INJ INJ (17:25)
[2017-12-23 18:21] LABS: HEPATITIS B SURFACE ANTIGEN NEGATIVE (NEGATIVE)
[2017-12-24] MEDS: LORAZEPAM 1 MG TAB PO (00:19)
[2017-12-24] MEDS: HYDROCODONE/APAP (5/325) TAB PO (04:48)
[2017-12-24 04:56] LABS: ADD MAN DIFF? NO
[2017-12-24 05:11] LABS: BASOPHIL # 0.1 10^3/ul (0.0-0.1); BASOPHILS % 1.2 % (0.0-2.0); EOSINOPHILS # 0.7 10^3/ul (0.0-0.5); EOSINOPHILS % 11.8 % (0.0-7.0); HEMOGLOBIN 9.6 g/dl (12.0-16.0); LYMPHOCYTES # 0.9 10^3/ul (0.8-2.9); MEAN CORPUSCULAR HEMOGLOBIN 32.7 pg (29.0-33.0); MEAN PLATELET VOLUME 9.9 fl (7.4-10.4); MONOCYTE # 0.7 10^3/ul (0.3-0.9); MONOCYTES % 12.5 % (0.0-11.0); NEUTROPHIL # 3.4 10^3/ul (1.6-7.5); NEUTROPHILS % 59.2 % (39.0-77.0); PLATELET COUNT 223 10^3/UL (140-415); RED BLOOD COUNT 2.94 10^6/ul (4.20-5.40); RED CELL DISTRIBUTION WIDTH 13.4 % (11.5-14.5)
[2017-12-24 05:11] LABS: WHITE BLOOD COUNT 5.8 10^3/ul (4.8-10.8)
[2017-12-24 05:16] LABS: ANION GAP 14 (8-16); BLOOD UREA NITROGEN 12 mg/dl (7-20); CALCIUM 12.4 mg/dl (8.4-10.2); CARBON DIOXIDE 31 mmol/L (21-31); CHLORIDE 96 mmol/L (97-110); GLUCOSE 91 mg/dl (70-220); POTASSIUM 4.5 mmol/L (3.5-5.1); SODIUM 136 mmol/L (135-144)
[2017-12-24] MEDS: hydrALAzine 20 MG INJ IV (06:10)
[2017-12-24] MEDS: HYDROmorphONE 4 MG TAB PO ×2 (06:58→13:01)
[2017-12-24] MEDS: CINACALCET 30 MG TAB PO ×2 (08:56→13:00)
[2017-12-24] MEDS: SEVELAMER CARBONATE 800 MG TABLET PO ×2 (08:56→11:40)
[2017-12-24] MEDS: PHENYTOIN 100 MG CAP PO (08:56)
[2017-12-24] MEDS: predniSONE 5 MG TAB PO (09:01)
[2017-12-24] MEDS: LABETALOL 200 MG TAB PO (09:01)
[2017-12-24] MEDS: NIFEdipine (XL) 90 MG TAB PO (09:01)
[2017-12-24] MEDS: CALCITONIN SALMON 400 UNITS INJ SC (09:46)
[2018-01-02 14:04] LABS: PTH CALCIUM 8.3 mg/dL (8.6-10.2); PTH INTACT 1511 pg/mL (14-64)
[2018-01-02 14:05] LABS: PTH CALCIUM 10.3 mg/dL (8.6-10.2); PTH INTACT 639 pg/mL (14-64)
== END 2017-12-24 14:21 | disposition home or self-care (01) | DRG 545 ==
LOC: MS1 12-21 02:43 → E/R 21:53 → MS1 12-18 11:45 → MS4 12-15 01:17
PROC: 5A1D70Z Performance of Urinary Filtration, Intermittent, Less than 6 Hours Per Day (ICD-10-PCS; principal; 2017-12-15)
DX: M32.14 Glomerular disease in systemic lupus erythematosus (principal); N18.6 End stage renal disease; E87.1 Hypo-osmolality and hyponatremia; I50.32 Chronic diastolic (congestive) heart failure; E21.2 Other hyperparathyroidism; I11.0 Hypertensive heart disease with heart failure; D63.1 Anemia in chronic kidney disease; D35.1 Benign neoplasm of parathyroid gland; R10.9 Unspecified abdominal pain; Z99.2 Dependence on renal dialysis
CPT/HCPCS: 36415; 71045; 74176; 76536; 76705; 76801; 76817; 76856; 80048; 80053; 80069; 81001; 82977; 83605; 83690; 83735; 83970; 84100; 84484; 84702; 84703; 85025; 85651; 86140; 87081; 87340; 88104; 88307; 90935; 92610; 93005; 93306; 96374; 96375; 96376; 99217; 99285-25; G0378

== ENCOUNTER 2018-01-09 21:54 | Observation (INO) | payer OTHER ==
[2018-01-09 23:09] LABS: ADD MAN DIFF? NO
[2018-01-09 23:11] LABS: BASOPHIL # 0.1 10^3/ul (0.0-0.1); BASOPHILS % 0.7 % (0.0-2.0); EOSINOPHILS # 0.7 10^3/ul (0.0-0.5); EOSINOPHILS % 8.7 % (0.0-7.0); HEMATOCRIT 29.4 % (37.0-47.0); HEMOGLOBIN 9.4 g/dl (12.0-16.0); LYMPHOCYTES # 0.7 10^3/ul (0.8-2.9); LYMPHOCYTES % 8.4 % (15.0-51.0); MEAN CORPUSCULAR HEMOGLOBIN 33.2 pg (29.0-33.0); MEAN CORPUSCULAR VOLUME 103.9 fl (82.0-101.0); MEAN PLATELET VOLUME 9.7 fl (7.4-10.4); MONOCYTE # 0.9 10^3/ul (0.3-0.9); MONOCYTES % 10.6 % (0.0-11.0); NEUTROPHILS % 71.2 % (39.0-77.0); PLATELET COUNT 285 10^3/UL (140-415); RED BLOOD COUNT 2.83 10^6/ul (4.20-5.40); RED CELL DISTRIBUTION WIDTH 14.3 % (11.5-14.5)
[2018-01-09 23:11] LABS: WHITE BLOOD COUNT 8.4 10^3/ul (4.8-10.8)
[2018-01-09] MEDS: DIPHENHYDRAMINE 50 MG INJ IV (23:12)
[2018-01-09] MEDS: ONDANSETRON 4 MG INJ IV (23:12)
[2018-01-09] MEDS: HYDROmorphONE 1 MG/ML SYG IV (23:12)
[2018-01-09 23:29] LABS: ALANINE AMINOTRANSFERASE 19 IU/L (13-69); ALBUMIN 3.7 g/dl (3.3-4.9); ALKALINE PHOSPHATASE 879 IU/L (42-121); ANION GAP 20 (8-16); ASPARTATE AMINO TRANSFERASE 23 IU/L (15-46); BLOOD UREA NITROGEN 43 mg/dl (7-20); CALCIUM 12.4 mg/dl (8.4-10.2); CARBON DIOXIDE 25 mmol/L (21-31); CHLORIDE 94 mmol/L (97-110); CREATININE 8.25 mg/dl (0.44-1.00); GLUCOSE 89 mg/dl (70-220); LIPASE 65 U/L (23-300); POTASSIUM 4.7 mmol/L (3.5-5.1); SODIUM 134 mmol/L (135-144); TOTAL PROTEIN 7.4 g/dl (6.1-8.1)
[2018-01-10] MEDS: METHYLPREDNISOLONE 125 MG INJ IV (02:47)
[2018-01-10] MEDS: hydrALAzine 20 MG INJ IV (02:47)
[2018-01-10 03:43] LABS: ERYTHROCYTE SEDIMENTATION RATE 95 mm/Hr (0-20)
[2018-01-10] MEDS: HYDROmorphONE 1 MG/ML SYG IV (04:40)
[2018-01-10] MEDS: DIPHENHYDRAMINE 50 MG INJ IV (05:07)
[2018-01-10 05:26] LABS: TROPONIN-I 0.129 ng/ml (0.000-0.120)
[2018-01-10] MEDS ORDERED: NACL 0.9% 3 ML SYG IV (07:00)
[2018-01-10] MEDS ORDERED: HYDROCODONE/APAP (5/325) TAB PO (07:00)
[2018-01-10] MEDS ORDERED: NITROGLYCERIN (SL) 0.4 MG TAB SL (07:00)
[2018-01-10] MEDS ORDERED: DOCUSATE SODIUM 100 MG CAP PO (07:00)
[2018-01-10] MEDS ORDERED: LORAZEPAM 1 MG TAB PO (07:00)
[2018-01-10] MEDS ORDERED: ALBUTEROL/IPRATROPIUM (NEB) 3 ML AMP HHN (07:00)
[2018-01-10] MEDS ORDERED: NIFEDIPINE 90 MG PO (09:00)
[2018-01-10] MEDS ORDERED: SEVELAMER CARBONATE 0.8 GM PKT GTB (09:00)
[2018-01-10] MEDS: SEVELAMER CARBONATE 2.4 GM PKT GTB ×3 (09:00→14:18)
[2018-01-10 09:51] LABS: CREATINE KINASE 23 IU/L (23-200)
[2018-01-10 10:02] LABS: CK INDEX 1.4; CK-MB 0.32 ng/ml (0.0-2.4); TROPONIN-I 0.116 ng/ml (0.000-0.120)
[2018-01-10] MEDS: CINACALCET 30 MG TAB PO ×3 (10:22→21:34)
[2018-01-10] MEDS: METOPROLOL 50 MG TAB PO ×2 (10:24→21:35)
[2018-01-10] MEDS: PHENYTOIN 100 MG CAP PO ×2 (10:25→21:34)
[2018-01-10] MEDS: predniSONE 5 MG TAB PO (10:25)
[2018-01-10] MEDS: CALCITONIN SALMON 400 UNITS INJ SC (11:04)
[2018-01-10] MEDS: HYDROCODONE/APAP (5/325) TAB PO ×2 (11:06→21:36)
[2018-01-10 13:19] LABS: CREATINE KINASE 24 IU/L (23-200)
[2018-01-10 13:32] LABS: CK-MB 0.25 ng/ml (0.0-2.4); TROPONIN-I 0.088 ng/ml (0.000-0.120)
[2018-01-10] MEDS: HEPARIN 5,000 UNIT/0.5 ML VIAL SC ×2 (14:00→21:38)
[2018-01-10] MEDS: ONDANSETRON 4 MG INJ IV (14:25)
[2018-01-10] MEDS: DIPHENHYDRAMINE 25 MG CAP PO (14:26)
[2018-01-10] MEDS ORDERED: traMADol 50 MG TAB PO (15:00)
[2018-01-10] MEDS: EPOETIN 10000 UNITS/1 ML INJ (ESRD) SC (17:21)
[2018-01-10] MEDS: SEVELAMER CARBONATE 800 MG TABLET PO (18:00)
[2018-01-10] MEDS: NIFEdipine (XL) 90 MG TAB PO (22:13)
[2018-01-11] MEDS: HEPARIN 5,000 UNIT/0.5 ML VIAL SC ×2 (06:00→09:04)
[2018-01-11] MEDS: HYDROCODONE/APAP (5/325) TAB PO ×2 (07:07→18:08)
[2018-01-11 07:13] LABS: ADD MAN DIFF? NO
[2018-01-11 07:19] LABS: WHITE BLOOD COUNT 4.7 10^3/ul (4.8-10.8)
[2018-01-11 07:19] LABS: BASOPHILS % 0.6 % (0.0-2.0); EOSINOPHILS # 0.2 10^3/ul (0.0-0.5); EOSINOPHILS % 4.1 % (0.0-7.0); HEMATOCRIT 26.8 % (37.0-47.0); HEMOGLOBIN 8.4 g/dl (12.0-16.0); LYMPHOCYTES % 21.4 % (15.0-51.0); MEAN CORPUSCULAR HEMOGLOBIN 32.9 pg (29.0-33.0); MEAN CORPUSCULAR HGB CONC 31.3 g/dl (32.0-37.0); MEAN CORPUSCULAR VOLUME 105.1 fl (82.0-101.0); MEAN PLATELET VOLUME 10.2 fl (7.4-10.4); MONOCYTE # 0.6 10^3/ul (0.3-0.9); MONOCYTES % 12.8 % (0.0-11.0); NEUTROPHIL # 2.8 10^3/ul (1.6-7.5); NEUTROPHILS % 60.7 % (39.0-77.0); PLATELET COUNT 256 10^3/UL (140-415); RED BLOOD COUNT 2.55 10^6/ul (4.20-5.40); RED CELL DISTRIBUTION WIDTH 14.5 % (11.5-14.5)
[2018-01-11] MEDS: LIDOCAINE 1% (MPF) 5 ML VIAL INJ (07:25)
[2018-01-11 07:39] LABS: ALANINE AMINOTRANSFERASE 17 IU/L (13-69); ALBUMIN 3.1 g/dl (3.3-4.9); ALKALINE PHOSPHATASE 644 IU/L (42-121); ANION GAP 22 (8-16); ASPARTATE AMINO TRANSFERASE 18 IU/L (15-46); BLOOD UREA NITROGEN 66 mg/dl (7-20); CALCIUM 10.2 mg/dl (8.4-10.2); CARBON DIOXIDE 21 mmol/L (21-31); CHLORIDE 98 mmol/L (97-110); CREATININE 10.42 mg/dl (0.44-1.00); GLUCOSE 82 mg/dl (70-220); POTASSIUM 5.6 mmol/L (3.5-5.1); SODIUM 135 mmol/L (135-144); TOTAL PROTEIN 6.2 g/dl (6.1-8.1)
[2018-01-11] MEDS: SEVELAMER CARBONATE 800 MG TABLET PO ×3 (08:00→18:00)
[2018-01-11] MEDS: METOPROLOL 50 MG TAB PO ×2 (09:00→12:00)
[2018-01-11] MEDS: PHENYTOIN 100 MG CAP PO ×2 (09:00→12:00)
[2018-01-11] MEDS: CALCITONIN SALMON 400 UNITS INJ SC (09:00)
[2018-01-11] MEDS: CINACALCET 30 MG TAB PO ×2 (09:00→12:06)
[2018-01-11] MEDS: predniSONE 5 MG TAB PO (09:00)
[2018-01-11] MEDS: ACETAMINOPHEN 325 MG TAB PO (11:54)
[2018-01-11] MEDS: ONDANSETRON 4 MG INJ IV (12:58)
[2018-01-11] MEDS: HYDROmorphONE 2 MG TAB PO (12:58)
[2018-01-11] MEDS: DIPHENHYDRAMINE 25 MG CAP PO (16:42)
== END 2018-01-11 18:20 | disposition home or self-care (01) ==
LOC: E/R 21:54 → 2NE 01-10 02:41
DX: M32.9 Systemic lupus erythematosus, unspecified (principal); D34 Benign neoplasm of thyroid gland; M79.7 Fibromyalgia; I12.0 Hypertensive chronic kidney disease with stage 5 chronic kidney disease or end stage renal disease; N18.6 End stage renal disease; Z99.2 Dependence on renal dialysis; E21.3 Hyperparathyroidism, unspecified; I10 Essential (primary) hypertension
CPT/HCPCS: 36415; 71045; 80053; 82550; 82553; 83690; 83735; 84484; 85025; 85651; 90935; 93005; 93308; 96374; 96375; 99285-25; G0378

== ENCOUNTER 2018-02-01 08:25 | Observation (INO) | payer OTHER ==
[2018-02-01] MEDS ORDERED: DOCUSATE SODIUM 100 MG CAP PO (10:30)
[2018-02-01] MEDS: LORAZEPAM 1 MG TAB PO (10:33)
[2018-02-01] MEDS: DIPHENHYDRAMINE 25 MG CAP PO ×2 (10:33→21:13)
[2018-02-01] MEDS: METOPROLOL 50 MG TAB PO ×2 (10:33→21:03)
[2018-02-01] MEDS ORDERED: morphine 2 MG INJ IV (11:00)
[2018-02-01] MEDS: PHENYTOIN 100 MG CAP PO (11:27)
[2018-02-01] MEDS: morphine 2 MG INJ IV ×3 (11:28→21:19)
[2018-02-01 11:42] LABS: ANION GAP 15 (8-16); BLOOD UREA NITROGEN 43 mg/dl (7-20); CALCIUM 9.9 mg/dl (8.4-10.2); CARBON DIOXIDE 26 mmol/L (21-31); CHLORIDE 99 mmol/L (97-110); CREATININE 5.69 mg/dl (0.44-1.00); GLUCOSE 80 mg/dl (70-220); POTASSIUM 4.7 mmol/L (3.5-5.1); SODIUM 135 mmol/L (135-144)
[2018-02-01] MEDS: CINACALCET 30 MG TAB PO ×2 (12:30→21:02)
[2018-02-01] MEDS: CLONIDINE 0.1 MG/24 HR PATCH TRANSDERM (12:30)
[2018-02-01] MEDS: SEVELAMER CARBONATE 2.4 GM PKT GTB ×2 (12:32→21:00)
[2018-02-01] MEDS ORDERED: SEVELAMER CARBONATE 2.4 GM PKT GTB (13:00)
[2018-02-01] MEDS ORDERED: NACL 0.9% 3 ML SYG IV (13:30)
[2018-02-01] MEDS ORDERED: ACETAMINOPHEN 325 MG TAB PO (13:30)
[2018-02-01] MEDS ORDERED: HYDROCODONE/APAP (5/325) TAB PO ×2 (13:30)
[2018-02-01] MEDS ORDERED: BISACODYL 10 MG SUPP PR (13:30)
[2018-02-01] MEDS ORDERED: ACETAMINOPHEN 650 MG SUPP PR (13:30)
[2018-02-01] MEDS ORDERED: MAGNESIUM HYDROXIDE 30ML CUP PO (13:30)
[2018-02-01] MEDS ORDERED: PHENYTOIN 200 MG PO (21:00)
[2018-02-01] MEDS: AMITRIPTYLINE 10 MG TAB PO (21:04)
[2018-02-01] MEDS: NIFEdipine (XL) 90 MG TAB PO (21:04)
[2018-02-02] MEDS: morphine 2 MG INJ IV ×4 (02:24→21:55)
[2018-02-02] MEDS: DIPHENHYDRAMINE 25 MG CAP PO ×3 (02:30→20:05)
[2018-02-02 05:54] LABS: ADD MAN DIFF? NO
[2018-02-02 06:03] LABS: BASOPHILS % 0.8 % (0.0-2.0); EOSINOPHILS # 0.4 10^3/ul (0.0-0.5); EOSINOPHILS % 8.3 % (0.0-7.0); HEMATOCRIT 28.3 % (37.0-47.0); HEMOGLOBIN 8.9 g/dl (12.0-16.0); LYMPHOCYTES # 1.3 10^3/ul (0.8-2.9); LYMPHOCYTES % 23.9 % (15.0-51.0); MEAN CORPUSCULAR HEMOGLOBIN 31.8 pg (29.0-33.0); MEAN CORPUSCULAR HGB CONC 31.4 g/dl (32.0-37.0); MEAN CORPUSCULAR VOLUME 101.1 fl (82.0-101.0); MEAN PLATELET VOLUME 9.9 fl (7.4-10.4); MONOCYTE # 0.6 10^3/ul (0.3-0.9); MONOCYTES % 11.7 % (0.0-11.0); NEUTROPHIL # 2.9 10^3/ul (1.6-7.5); NEUTROPHILS % 55.1 % (39.0-77.0); PLATELET COUNT 229 10^3/UL (140-415); RED CELL DISTRIBUTION WIDTH 15.9 % (11.5-14.5)
[2018-02-02 06:03] LABS: WHITE BLOOD COUNT 5.3 10^3/ul (4.8-10.8)
[2018-02-02 06:32] LABS: ANION GAP 18 (8-16); BLOOD UREA NITROGEN 56 mg/dl (7-20); CALCIUM 11.4 mg/dl (8.4-10.2); CARBON DIOXIDE 24 mmol/L (21-31); CHLORIDE 96 mmol/L (97-110); CREATININE 7.54 mg/dl (0.44-1.00); GLUCOSE 67 mg/dl (70-220); MAGNESIUM 2.6 mg/dl (1.7-2.5); PHOSPHORUS 7.3 mg/dl (2.5-4.9); POTASSIUM 5.8 mmol/L (3.5-5.1); SODIUM 132 mmol/L (135-144)
[2018-02-02 06:36] LABS: ALANINE AMINOTRANSFERASE 22 IU/L (13-69); ALBUMIN 2.9 g/dl (3.3-4.9); ALKALINE PHOSPHATASE 459 IU/L (42-121); ANION GAP 19 (8-16); ASPARTATE AMINO TRANSFERASE 19 IU/L (15-46); BLOOD UREA NITROGEN 54 mg/dl (7-20); CALCIUM 11.5 mg/dl (8.4-10.2); CARBON DIOXIDE 25 mmol/L (21-31); CHLORIDE 95 mmol/L (97-110); CHOL/HDL RATIO 2.4 RATIO; CHOLESTEROL 122 mg/dl (100-200); CREATININE 7.63 mg/dl (0.44-1.00); GLUCOSE 66 mg/dl (70-220); HDL CHOLESTEROL 50 mg/dl (33-83); LDL CHOLESTEROL,CALCULATED 30 mg/dl; POTASSIUM 5.8 mmol/L (3.5-5.1); SODIUM 133 mmol/L (135-144); TOTAL PROTEIN 5.8 g/dl (6.1-8.1); TRIGLYCERIDES 209 mg/dl (0-149)
[2018-02-02 06:47] LABS: FREE THYROXINE INDEX (Calc) 1.66 ug/ml (0.65-3.89); T3 UPTAKE 40.5 % (23.5-40.5); T4 (THYROXINE) 4.1 ug/dl (5.5-11.0)
[2018-02-02 07:46] LABS: HEMOGLOBIN A1C 4.5 % (0-5.9)
[2018-02-02] MEDS: predniSONE 5 MG TAB PO (08:26)
[2018-02-02] MEDS: ASPIRIN (EC) 81 MG TAB PO (08:26)
[2018-02-02] MEDS: CINACALCET 30 MG TAB PO ×3 (08:26→21:16)
[2018-02-02] MEDS: PHENYTOIN 100 MG CAP PO (08:26)
[2018-02-02] MEDS: SEVELAMER CARBONATE 2.4 GM PKT GTB ×2 (08:27→13:00)
[2018-02-02] MEDS: METOPROLOL 50 MG TAB PO ×2 (08:27→21:17)
[2018-02-02] MEDS: CALCITONIN SALMON 400 UNITS INJ SC (10:52)
[2018-02-02] MEDS ORDERED: LIDOCAINE 1% (MDV) 10 ML INJ INFIL (12:00)
[2018-02-02] MEDS: ONDANSETRON 4 MG INJ IV (12:41)
[2018-02-02] MEDS: LIDOCAINE 1% (MDV) 20 ML INJ INFIL (16:17)
[2018-02-02 17:39] LABS: HEPATITIS B SURFACE ANTIGEN NEGATIVE (NEGATIVE)
[2018-02-02 17:58] LABS: HEPATITIS B SURFACE ANTIBODY POSITIVE (NEGATIVE)
[2018-02-02] MEDS: LORAZEPAM 1 MG TAB PO (20:05)
[2018-02-02] MEDS ORDERED: PATIENT'S OWN MEDICATION PO (21:00)
[2018-02-02] MEDS: AMITRIPTYLINE 10 MG TAB PO (21:16)
[2018-02-02] MEDS: NIFEdipine (XL) 90 MG TAB PO (21:16)
[2018-02-02] MEDS: EPOETIN 10000 UNITS/1 ML INJ (ESRD) SC (21:18)
[2018-02-02] MEDS: SEVELAMER CARBONATE 800 MG PO (21:19)
[2018-02-03] MEDS: hydrALAzine 20 MG INJ IV (00:47)
[2018-02-03] MEDS: morphine 2 MG INJ IV ×4 (02:27→15:36)
[2018-02-03 05:40] LABS: ADD MAN DIFF? NO
[2018-02-03 06:02] LABS: BASOPHILS % 0.4 % (0.0-2.0); EOSINOPHILS # 0.4 10^3/ul (0.0-0.5); EOSINOPHILS % 7.9 % (0.0-7.0); HEMATOCRIT 29.7 % (37.0-47.0); HEMOGLOBIN 9.5 g/dl (12.0-16.0); LYMPHOCYTES # 0.8 10^3/ul (0.8-2.9); MEAN CORPUSCULAR HEMOGLOBIN 32.9 pg (29.0-33.0); MEAN CORPUSCULAR VOLUME 102.8 fl (82.0-101.0); MEAN PLATELET VOLUME 9.5 fl (7.4-10.4); MONOCYTE # 0.5 10^3/ul (0.3-0.9); MONOCYTES % 9.5 % (0.0-11.0); NEUTROPHIL # 3.6 10^3/ul (1.6-7.5); NEUTROPHILS % 66.8 % (39.0-77.0); PLATELET COUNT 230 10^3/UL (140-415); RED BLOOD COUNT 2.89 10^6/ul (4.20-5.40); RED CELL DISTRIBUTION WIDTH 15.9 % (11.5-14.5)
[2018-02-03 06:02] LABS: WHITE BLOOD COUNT 5.5 10^3/ul (4.8-10.8)
[2018-02-03 07:06] LABS: ANION GAP 16 (8-16); BLOOD UREA NITROGEN 20 mg/dl (7-20); CALCIUM 11.1 mg/dl (8.4-10.2); CARBON DIOXIDE 31 mmol/L (21-31); CHLORIDE 96 mmol/L (97-110); CREATININE 3.78 mg/dl (0.44-1.00); GLUCOSE 72 mg/dl (70-220); MAGNESIUM 2.4 mg/dl (1.7-2.5); POTASSIUM 3.7 mmol/L (3.5-5.1); SODIUM 139 mmol/L (135-144)
[2018-02-03] MEDS: CINACALCET 30 MG TAB PO ×2 (08:30→12:05)
[2018-02-03] MEDS: PHENYTOIN 100 MG CAP PO (08:30)
[2018-02-03] MEDS: SEVELAMER CARBONATE 800 MG PO ×2 (08:30→12:04)
[2018-02-03] MEDS: METOPROLOL 50 MG TAB PO (08:31)
[2018-02-03] MEDS: ASPIRIN (EC) 81 MG TAB PO (08:31)
[2018-02-03] MEDS: predniSONE 5 MG TAB PO (08:31)
[2018-02-03 08:52] LABS: PTH INTACT 2329 pg/mL (14-64)
[2018-02-03] MEDS: CALCITONIN SALMON 400 UNITS INJ SC (12:06)
[2018-02-03] MEDS: DIPHENHYDRAMINE 25 MG CAP PO (13:19)
[2018-02-03] MEDS: ONDANSETRON 4 MG INJ IV (13:58)
== END 2018-02-03 16:11 | disposition home or self-care (01) ==
LOC: 6WM 08:25
DX: E83.52 Hypercalcemia (principal); R10.30 Lower abdominal pain, unspecified; I12.0 Hypertensive chronic kidney disease with stage 5 chronic kidney disease or end stage renal disease; N18.6 End stage renal disease; Z99.2 Dependence on renal dialysis; M32.9 Systemic lupus erythematosus, unspecified; D34 Benign neoplasm of thyroid gland; M89.9 Disorder of bone, unspecified
CPT/HCPCS: 80048; 80053; 80061; 83036; 83735; 83970; 84100; 84436; 84443; 84479; 85025; 86706; 87081; 87340; 90935; 99217; G0378

== ENCOUNTER 2018-02-04 00:29 | Emergency (ER) | payer OTHER ==
[2018-02-04] MEDS: HYDROCODONE/APAP (5/325) TAB PO (03:51)
== END 2018-02-04 04:12 | disposition home or self-care (01) ==
LOC: FTE 00:29
DX: H65.01 Acute serous otitis media, right ear (principal); I10 Essential (primary) hypertension
CPT/HCPCS: 99283; Z7502